=== PATIENT | female | born 1990 | race Caucasian/White ===

== ENCOUNTER 2019-12-16 17:29 | Emergency (ER) | payer OTHER, SELFPAY ==
[2019-12-16 17:49] VITALS: BP 130/52; PULSE 97; RESP 16; TEMP 37.2; O2SAT 100
--- NOTE | 2019-12-16 17:59 | ED.UPPEXIN ---
HPI - Extremity Injury (Upper) General Chief Complaint: Extremity Injury, Upper Stated Complaint: right arm pain Time Seen by Provider: 12/16/19 17:49 Source: patient and RN notes reviewed Mode of arrival: ambulatory Limitations: no limitations History of Present Illness HPI narrative: Patient presents today complaining of pain to the right forearm x2 days. Pain began after she went to a batting cage and was hitting balls for the first time. States the balls were set at 60 miles an hour and she did not have a tile classifier on the back correctly when the last ball hit the bat, causing the back to reverberating her hand, causing pain in the wrist and forearm. She does report some intermittent tingling in the forearm. She currently rates her pain 8/10 and has been taking ibuprofen, applying ice and an David wrap without relief. MD complaint: injury to: right and forearm Related Data Allergies Allergy/AdvReac Type Severity Reaction Status Date / Time No Known Allergies Allergy Verified 12/16/19 17:50 Review of Systems Review of Systems: Narrative: CONSTITUTIONAL: Denies body aches, fever, chills, or sweats. EYES: Denies visual changes, redness, or discharge. ENT: Denies rhinorrhea, congestion, sore throat, or otalgia. CARDIOVASCULAR: Denies chest pain, palpitations, or edema. RESPIRATORY: Denies cough or dyspnea. GASTROINTESTINAL: Denies abdominal pain, nausea, vomiting, or diarrhea. GENITOURINARY: Denies dysuria or hematuria. SKIN: Denies rash, itching, or wounds. MUSCULOSKELETAL: Denies back pain, or myalgia.+ Right forearm and wrist pain NEUROLOGIC: Denies headache, numbness, tingling, or weakness. PSYCH: Denies depression or anxiety. PMFSH Social History Social History Gender identity (if verbalized by the patient): Female Comments At time of signature, I have reviewed and agree with nursing past medical, surgical, social and family history unless otherwise noted. Please see nursing chart for further information. There is no relevant family history pertinent to the presenting complaint Exam Narrative: Exam Narrative: GENERAL: Well-appearing, well-nourished, and in no acute distress. HEAD: Normocephalic, atraumatic. EYES: EOMI. No redness or drainage. Conjunctivae normal. ENT: Mucous membranes pink and moist. NECK: Normal AROM. CHEST: No respiratory distress. EXTREMITIES: Right arm: Tenderness along the dorsum of the forearm. No bony tenderness of the wrist or forearm. Pain with flexion and extension of the wrist. Mild localized swelling about the distal forearm and wrist. No ecchymosis or erythema noted. Distal sensation intact. Capillary refill normal. Radial pulse normal. Almost full range of motion of the wrist, but limited due to pain. Tenderness to the medial and lateral elbow as well without edema, ecchymosis, or erythema. Full AROM. SKIN: Warm, dry, no rash. Capillary refill normal. Normal skin turgor. NEURO: No focal deficits. Alert and oriented x3. Gait steady. PSYCH: Normal affect. No signs of depression or anxiety. Course Vital Signs Vital signs: Vital Signs Temperature 98.9 F 12/16/19 17:49 Pulse Rate 97 12/16/19 17:49 Respiratory Rate 16 12/16/19 17:49 Blood Pressure 130/52 L 12/16/19 17:49 Pulse Oximetry 100 12/16/19 17:49 Temperature 98.9 F 12/16/19 17:49 Pulse Rate 97 12/16/19 17:49 Respiratory Rate 16 12/16/19 17:49 Blood Pressure 130/52 L 12/16/19 17:49 Pulse Oximetry 100 12/16/19 17:49 Reviewed. Pt has been instructed to follow up with her PCP regarding her elevated blood pressure today. MDM - Extremity Injury (Upper) Differential Diagnosis Differential diagnosis: Likely sprain and strain of wrist, fracture of wrist and other (Tendinitis, ulnar nerve compression, carpal tunnel) Critical Care Time Critical Care Time Critical Care Time: No Discharge Plan Discharge Clinical Impression: Tendinitis of right forearm Patient Disposition: [facility]
== END 2019-12-16 18:00 | disposition home or self-care (01) ==
PROVIDERS: Emergency Provider Nurse Practitioner
DX: M77.9 Enthesopathy, unspecified (principal)
CPT/HCPCS: 99213; G0463